=== PATIENT | female | born 1960 | race Caucasian/White ===

== ENCOUNTER → 2023-09-24 | Outpatient (CLI) | payer OTHER, SELFPAY ==
--- NOTE | 2023-09-24 15:16 | CT_ITS ---
INDICATION: ANISOCORIA EXAMINATION: CT CHEST WITH CONTRAST - CT Chest W/ Contrast Injection TECHNIQUE: Helically acquired images were obtained of the chest following IV contrast. A radiation dose optimization technique was used for this scan. IV Contrast dosage and agent: COMPARISON: None. FINDINGS: Exam is limited by improper positioning of patient''s arms resulting in significant streak artifact. LUNGS, PLEURA AND LARGE AIRWAYS: No masses, consolidation, or edema. No pleural effusion or thickening. No pneumothorax. THYROID: No thyroid lesions. HEART AND PERICARDIUM: Heart size is normal. No pericardial effusion. VESSELS: Thoracic aorta is not dilated. No aortic dissection. No obvious central pulmonary embolism although this study was not performed with the pulmonary embolism protocol. MEDIASTINUM AND BRODERICK: No mediastinal or hilar adenopathy. Esophagus is unremarkable. No hiatal hernia. UPPER ABDOMEN: No acute pathology. BONES: Degenerative changes. No suspicious lytic or blastic abnormality. CT/Chest WITH Contrast IMPRESSION: Negative contrast enhanced CT of the chest. Electronically Signed: Socrates Joya MD at 16:37 EST ,
--- NOTE | 2023-09-24 15:16 | CT_ITS ---
STUDY: CTA HEAD AND NECK WITH CONTRAST REASON FOR EXAM: Female, 63 years old. ANISOCORIA RADIATION DOSAGE (If Supplied By Facility): CTDIvol = ( 25.22 ) mGy, DLP = ( 2481.93 ) mGycm TECHNIQUE: CT angiography was performed with a multi-detector CT scanner. Data acquisition was obtained from the skull base through the vertex following intravenous administration of IV 100mL [id number]. MIP images were reconstructed from the axial data set. Post-processing of the angiographic images was performed, with multiplanar reformation and 3D reconstruction. Individualized dose optimization techniques were used for this CT. COMPARISON: No relevant priors. FINDINGS: Normal bilateral petrous carotid arteries. Normal right cavernous carotid artery with a normal supraclinoid bifurcation. Normal left cavernous carotid artery with a normal supraclinoid bifurcation. Normal right A1 segments of the anterior cerebral artery. Normal left A1 segments of the anterior cerebral artery. Normal intact anterior communicating artery (ACOM). Normal bilateral A2 segments of the anterior cerebral arteries. Normal right M1 and M2 segments of the middle cerebral arteries, with a normal M1 bifurcation. Normal left M1 and M2 segments of the middle cerebral arteries, with a normal M1 bifurcation. Normal right posterior communicating artery (PCOM). Normal left posterior communicating artery (PCOM). Normal bilateral vertebral arteries. Normal basilar artery with a normal basilar bifurcation. The visualized bilateral superior cerebellar (SCA) arteries are normal. Normal bilateral P1, P2 and visualized P3 segments of the posterior cerebral arteries. There is no demonstrated aneurysm of the [place] of [place]. There is no demonstrated abnormality of the visualized brain. AORTIC ARCH: Normal visualized aortic arch. Normal origins of the brachiocephalic, left common carotid, and left subclavian arteries. RIGHT CAROTID ARTERIES: Normal right common carotid artery (CCA). There is mild atherosclerotic plaque formation with minimal narrowing of the right carotid bulb. There is mild atherosclerotic plaque formation of the origin of the right internal carotid artery with less than 50% cross sectional diameter stenosis. Normal visualized cervical portion of the right internal carotid artery. Normal origin of the right external carotid artery (ECA). LEFT CAROTID ARTERIES: Normal left common carotid artery (CCA). There is mild atherosclerotic plaque formation with minimal narrowing of the left carotid bulb. There is mild atherosclerotic plaque formation of the origin of the left internal carotid artery with less than 50% cross sectional diameter stenosis. Normal visualized cervical portion of the left internal carotid artery. Normal origin of the left external carotid artery (ECA). VERTEBRAL ARTERIES: Normal bilateral vertebral arteries. CT/CTA Head AND Neck W/ Contrast IMPRESSION: Normal CTA Head and neck with contrast for age. Electronically Signed: Socrates Joya MD at 16:50 EST ,
[2023-09-24 15:59] LABS: CREATININE FINGERSTICK < 1.0 mg/dL (0.55-1.02)
[2023-09-24 16:41] LABS: Absolute Lymphocyte Count 2.15 X10^3/uL (0.83-4.51); Basophil# 0.07 X10^3/uL; Eosinophil# 0.24 X10^3/uL; Eosinophils% 3.4 % (0-5); Hematocrit 42.3 % (37-47); Hemoglobin 13.1 g/dL (12.0-15.0); Lymphocyte # 2.15 X10^3/ul (0.83-4.51); Lymphocyte % 30.9 % (19-41); Mean Corpuscular Volume 93.6 fL (81-99); Mean Platelet Vol. 9.7 fl (6.2-12.0); Monocyte# 0.46 X10^3/uL; Monocyte% 6.6 % (0-10); NRBC Flagged by Analyzer 0 % (0-5); Neutrophil # 4.02 X10^3/uL (2.7-7.7); Neutrophil % 57.8 % (47-70); Platelet Count 285 K/mm3 (150-450); RBC Distribution Width CV 13.2 % (11.6-14.6); RBC Distribution Width SD 45.2 fl (35.1-43.9); Red Blood Count 4.52 M/mm3 (4.2-5.4)
[2023-09-24 16:57] LABS: Erythrocyte Sedimentation Rate 6 mm/hr (0-30)
[2023-09-24 17:17] LABS: CRP < 2.90 mg/L (0.0-3.0)
--- OUTSIDE RECORDS SUMMARY | 2023-09-24 17:55 | XMS RPT_ITS | CCD ---
Author Name Unknown Address [address] [facility] [address] [place] [address] Organization [facility] Care Team Providers Care Workers Compensation Claims Supervisor Name Role Phone HENRI PRICE Primary Care Physician ( [phone] Rachel Hsu PT Unavailable Unavailable JEWELL ROSALES DO Primary Care Physician JEWELL ROSALES DO Attending Unavailable JEWELL ROSALES DO Primary Care Unavailable REBECCA CARDENAS Attending Unavailab le JEWELL ROSALES DO Primary Care Unavailable JEWELL ROSALES DO Primary Care Unavailable JEWELL ROSALES DO Attending Unavailable JEWELL ROSALES DO Primary Care Unavailable JEWELL ROSALES DO Attending Unavailable JEWELL ROSALES DO Attending Unavailable JEWELL ROSALES DO Primary Care Unavailable KINDRA HAHN MD Attending Unavail able JEWELL ROSALES DO Primary Care Unavailable JEWELL ROSALES DO Attending Unavailable JEWELL ROSALES DO E Primary Care Unavailable JEWELL ROSALES DO Attending Unavailable JEWELL ROSALES DO E Primary Care Unavailable Allergies Allergy Classification Reported Allergen(s) Allergy Type Date of Onset Reaction(s) Facility (3 sources) seasonal enviromental Allergy to substance tinitis, dizziness, drainage [facility] Work Phone: Medications Current Medications Medication Drug Class(es) Dates Sig (Normalized) Sig (Original) amLODIPine 10 mg oral tablet (8 sources) Dihydropyridine Calcium Channel Abhi Start: 08-01-2021 End: 01-28-2022 amLODIPine 10 mg oral tablet Dose : 10 mg = 1 tab(s), Oral, qDay, # 90 tab(s), 1 Refill(s), Pharmacy: [facility]/pharmacy #[id number], 171.5, cm, 08/01/21 8:06:00 EST, Height, kg, 08/01/21 8:13:00 EST, Dosing Weight Start Date: 08/01/21 Stop Date: 01/28/22 Status: Ordered Completed/Discontinued Medications Medication Drug Class(es) Dates Sig (Normalized) Sig (Original) acetaminophen 325 mg / HYDROcodone bitartrate 5 mg oral tablet (4 sources) Opioid Agonist Start: 09-08-2021 acetaminophen-hydr ocodone 325 mg-5 mg oral tablet Dose = 1 tab(s), Oral, q6h, PRN for pain, 0 Refill(s), 104.5 Start Date: 09/08/21 Status: Ordered Problems Problem Classification Problem Date Documented Da te Episodic/Chronic Abdominal pain (1 source) Epigastric pain; Translations: [Epigastric pain] Episodic Anxiety disorders (8 sources) Anxiety 12-29-2020 Chronic Cardiac dysrhythmias (5 sources) Multiple premature ventricular complexes 06-24-2023 Chronic Cardiac dysrhythmias (1 source) Palpitations 08-26-2023 Episodic Chronic kidney disease (1 source) Chronic kidney disease stage 3A 08-26-2023 Chronic Conditions associated with dizziness or vertigo (15 sources) Dizziness; Translations: [Lightheadedness] 11-30-2022 Episodic Conduction disorders (3 sources) Prolonged QT interval 11-23-2022 Chronic Disorders of lipid metabolism (20 sources) Hyperlipidemia; Translations: [Mixed hyperlipidemia] 12-29-2020 Chronic Essential hypertension (16 sources) Hypertensive disorder; Translations: [Essential hypertension] 12-29-2020 Chronic Headache; including migraine (7 sources) Frequent headache 10-30-2022 Episodic Other circulatory disease (8 sources) Elevated blood pressure 12-08-2020 Episodic Other connective tissue disease (1 source) Cramp in lower limb 08-26-2023 Episodic Other connective tissue disease (1 source) Swelling of lower limb 08-26-2023 Episodic Other diseases of kidney and ureters (1 source) Disorder of kidney and/or ureter; Translations: [Disorder of kidney and ureter, unspecified] Episodic Other diseases of kidney and ureters (2 sources) Disorder of kidney and ureter, unspecified; Translations: [Disorder of kidney and ureter, unspecified] Onset: 07-23-2023 Episodic Other ear and sense organ disorders (8 sources) Tinnitus 12-29-2020 Episodic Other ear and sense organ disorders (7 sources) Tinnitus of vascular origin 10-30-2022 Episodic Other eye disorders (1 source) Abnormal pupillary function; Translations: [Mydriasis] Onset: 09-04-2023 Chronic Other non-traumatic joint disorders (8 sources) Multiple joint pain 03-14-2020 Episodic Other non-traumatic joint disorders (1 source) Ankle joint pain; Translations: [Pain in left ankle and joints of left foot] Episodic Other nutritional; endocrine; and metabolic disorders (5 sources) Body mass index 30+ - obesity 03-28-2023 Chronic Other nutritional; endocrine; and metabolic disorders (8 sources) Overweight 05-08-2021 Episodic Other screening for suspected conditions (not mental disorders or infectious disease) (5 sources) Abnormal renal function 06-24-2023 Episodic Residual codes; unclassified (7 sources) Obstructive sleep apnea syndrome 11-30-2022 Chronic Residual codes; unclassified (15 sources) Insomnia 04-28-2019 Episodic Residual codes; unclassified (7 sources) Dependent edema 03-06-2022 Episodic Thyroid disorders (8 sources) Acquired hypothyroidism; Translations: [Hypothyroidism] 11-30-2022 Chronic Unclassified (7 sources) Grade A1 albuminuria 11-30-2022 Unclassified (5 sources) Patient encounter status 03-28-2023 Results Test Name Value Interpretation Reference Range Facil ity Vital Signs Date Time Vital Sign Value Performing Clinician Elgini marianne 09-04-2023 11:05-0500 Body height 170.2 cm KINDRA HAHN MD [facility] 09-04-2023 11:05-0500 Body temperature 97.88 [degF] KINDRA HAHN MD [facility] 09-04-2023 11:05-0500 Body weight 107 kg KINDRA HAHN MD [facility] 09-04-2023 11:05-0500 Diastolic Blood Pressure Non-Invasive 84 mm[Hg] KINDRA HAHN MD [facility] 09-04-2023 11:05-0500 Heart rate 65 /min KINDRA HAHN MD [facility] 09-04-2023 11:05-0500 Respiratory rate 18 /min KINDRA HAHN MD [facility] 09-04-2023 11:05-0500 Systolic Blood Pressure Non-Invasive 148 mm[Hg] KINDRA HAHN MD [facility] 09-08-2021 11:42-0500 Diastolic Blood Pressure NBP 76 1 BIANCA SUPPAN DPM [facility] 09-08-2021 11:42-0500 Heart rate 72 /min BIANCA SUPPAN DPM [facility] 09-08-2021 11:42-0500 Systolic Blood Pressure NBP 132 1 BIANCA SUPPAN DPM [facility] 09-08-2021 11:35-0500 Diastolic Blood Pressure NBP 74 1 BIANCA SUPPAN DPM [facility] 09-08-2021 11:35-0500 Heart rate 70 /min BIANCA SUPPAN DPM [facility] 09-08-2021 11:35-0500 Systolic Blood Pressure NBP 134 1 BIANCA SUPPAN DPM [facility] 09-08-2021 11:24-0500 Diastolic Blood Pressure NBP 78 1 BIANCA SUPPAN DPM [facility] 09-08-2021 11:24-0500 Heart rate 82 /min BIANCA SUPPAN DPM [facility] 09-08-2021 11:24-0500 Systolic Blood Pressure NBP 137 1 BIANCA SUPPAN DPM [facility] 09-08-2021 11:07-0500 Respiratory rate 18 /min BIANCA SUPPAN DPM [facility] 09-08-2021 11:00-0500 Respiratory rate 17 /min BIANCA SUPPAN DPM [facility] 09-08-2021 10:45-0500 Respiratory rate 22 /min BIANCA SUPPAN DPM [facility] 09-08-2021 10:30-0500 Body temperature 96.98 [degF] BIANCA SUPPAN DPM [facility] 09-08-2021 08:35-0500 Body height 170.2 cm BIANCA SUPPAN DPM [facility] 09-08-2021 08:35-0500 Body temperature 99.14 [degF] BIANCA SUPPAN DPM [facility] 09-08-2021 08:35-0500 Body weight 104.5 kg BIANCA SUPPAN DPM [facility] 09-08-2021 08:35-0500 Heart rate 83 /min BIANCA SUPPAN DPM [facility] 08-31-2021 09:35-0500 Body height 170.2 cm BIANCA SUPPAN DPM [facility] 08-31-2021 09:35-0500 Body weight 104.5 kg BIANCA SUPPAN DPM [facility] 08-31-2021 09:35-0500 Body weight 36.07 kg/m2 BIANCA SUPPAN DPM [facility] 08-31-2021 09:35-0500 diastolic 84 mm[Hg] BIANCA SUPPAN DPM [facility] 08-31-2021 09:35-0500 Heart rate 94 /min BIANCA SUPPAN DPM [facility] 08-31-2021 09:35-0500 Respiratory rate 20 /min BIANCA SUPPAN DPM [facility] 08-31-2021 09:35-0500 systolic 140 mm[Hg] BIANCA SUPPAN DPM [facility] Encounters Encounter Date Encounter Type Care Provider Facility Start: 09-04-2023 End: 09-04-2023 Emergency department patient visit KINDRA E LYREN-SONDLES MD Facility:B Start: 09-04-2023 End: 09-04-2023 Emergency department patient visit KINDRA HAHN MD [facility] Start: 08-23-2023 End: 08-24-2023 ambulatory JEWELL ROSALES DO Facility:B Start: 08-23-2023 End: 08-23-2023 Patient encounter procedure JEWELL ROSALES DO [facility] Start: 07-23-2023 End: 07-28-2023 ambulatory JEWELL ROSALES DO Facility:B Start: 07-23-2023 End: 07-28-2023 Encounter for general adult medical examination without abnormal findings JEWELL ROSALES DO Facility:B Start: 07-23-2023 End: 07-27-2023 Outreach Lab JEWELL ROSALES DO [facility] Start: 07-16-2023 End: 07-17-2023 ambulatory REBECCA HALL SCALEMAKER-CHIEF CHEMIST Facility:B Start: 07-16-2023 End: 07-16-2023 Patient encounter procedure REBECCA HALL SCALEMAKER-CHIEF CHEMIST [facility] Start: 06-24-2023 End: 06-25-2023 ambulatory JEWELL ROSALES DO Facility:B Start: 06-24-2023 End: 06-24-2023 Patient encounter procedure JEWELL ROSALES DO [facility] Start: 06-24-2023 End: 06-24-2023 Well adult monitoring check done JEWELL ROSALES DO [facility] Start: 01-15-2023 End: 01-16-2023 ambulatory JEWELL ROSALES DO Facility:B Start: 01-15-2023 End: 01-15-2023 Patient encounter procedure JEWELL Kylie ROSALES DO [facility] Start: 01-02-2023 End: 01-03-2023 ambulatory JEWELL Kylie ROSALES DO Facility:B Start: 01-02-2023 End: 01-02-2023 Patient encounter procedure JEWELL Kylie ROSALES DO [facility] Start: 11-23-2022 End: 11-24-2022 ambulatory JEWELL Kylie ROSALES DO Facility:B Start: 01-12-2022 End: 01-12-2022 Patient encounter procedure HENRI VASQUEZ SCALEMAKER-CHIEF CHEMIST [facility] Start: 12-27-2021 End: 12-27-2021 Patient encounter procedure HENRI VASQUEZ SCALEMAKER-CHIEF CHEMIST [facility] Start: 12-05-2021 End: 12-05-2021 Patient encounter procedure HENRI VASQUEZ SCALEMAKER-CHIEF CHEMIST [facility] Start: 09-08-2021 End: 09-08-2021 SAME DAY STAY BIANCA MORRIS DPM [facility] Start: 08-31-2021 End: 08-31-2021 Admission to establishment BIANCA MORRIS DPM [facility] Start: 08-18-2021 End: 08-18-2021 Patient encounter procedure HENRI VASQUEZ SCALEMAKER-CHIEF CHEMIST [facility] Start: 07-18-2021 End: 07-18-2021 Patient encounter procedure BIANCA MORRIS DPM [facility] Start: 05-24-2021 End: 08-21-2021 Physical therapy management BIANCA MORRIS DPM [facility] Procedures Date Procedure Procedure Detail Performing Clinician Start: 01-31-2012 Cystoscopy BIANCA ASHRAF DPM Immunizations Immunization Date Immunization Notes Care Provider Fa cility 12-16-2020 COVID-19, mRNA, LNP- S, PF, 100 mcg/ 0.5 mL dose; Translations: [Moderna COVID-19 Vaccine] BIANCA MORRIS DPM [facility] 11-19-2020 COVID-19, mRNA, LNP- S, PF, 100 mcg/ 0.5 mL dose; Translations: [Moderna COVID-19 Vaccine] BIANCA MORRIS DPM [facility] Payers Date Payer Category Payer Private Health Insurance [id number] 1960 Unknown [id number] 2.16.8 [id number] 1960 Unknown [id number] 2.16.8 [id number] 1959 Unknown [id number] 2.16.8 [id number] 1959 Unknown [id number] 2.16.8 [id number] 1959 Unknown [id number] 2.16.8 [id number] 1959 Unknown [id number] 2.16.8 [id number] 1960 Unknown [id number] 2.16.8 [id number] 1960 Unknown [id number] 2.16.8 [id number] Social History Date Type Detail Facility Start: 04-28-2019 Never smoked t obacco (finding) [facility] Sex Assigned At Female [facility] Functional Status Date Assessment Result Facility 09-04-2023 Functional Status Standard Safet y ID band on, Call device within reach, Bed in low position, Wheels locked, Upper/Half-Length side-rails up, Bedside Cart Locked, Safety level maintained [facility] Mental Status Date Assessment Result Facility 09-04-2023 Mental Status Orientation Oriented x 4 [facility] Clinical Notes 09-08-2021 to 09-04-2023 Note Date & Type Note Facility 09-04-2023 Hospital Discharg e instructions Patient Education 09/04/2023 13:30:35 How the Eye Works How the Eye Works Sharp vision depends on many factors. The parts of the eye work together to refract, or bend, and focus light rays. For normal vision, light must focus onto the retina. Cornea Light enters the eye through this clear, dome-shaped tissue. The cornea also bends light rays to help focus them. Problems with the cornea's shape can affect vision. Pupil This circular window in the center of the iris opens and closes to let the right amount of light into the eye. Iris This is the colored part of the eye. It contains muscles that dilate or open, and constrict or close, the pupil. Lens This disk of clear tissue behind the pupil changes shape to help focus light. Retina This thin layer of light-sensitive tissue lines the inside of the eye. The retina sends signals to the optic nerve. Optic nerve This nerve carries signals from the retina to the brain. The brain then interprets these signals to make images. These images are what you see. [id number] [employer] [place] [address], [place] [address]. All rights reserved. This information is not intended as a substitute for professional medical care. Always follow your healthcare professional's instructions. Follow Up Care 09/04/2023 10:49:50 With:JEWELL ROSALES DO Address: [address] [place] [phone] When:2-4 days [facility] 09-04-2023 Emergency department Discharge summary Discharge Instructions Thank you for allowing [facility] to assist you with your healthcare needs. The following is important discharge information regarding your hospital visit. Diagnosis from Today's Visit Headache Pupil dilated What to Do Next Instructions from Your Care Team No qualifying data available. Post Acute Orders No qualifying data available. You Need to Schedule the Following Appointments Follow Up with JEWELL ROSALES DO When Within 2-4 days Where: [address] [place] [phone] Allergies NKA Medications Please ask your primary doctor or pharmacist before taking any other medication not listed, including over the counter drugs, herbal medications, vitamins and or supplements as they may interact with your home medications. What How Much When Why Instructions Last Dose Unchanged aspirin 81 by mouth Every day Unchanged atorvastatin (Lipitor 10 mg oral tablet) 1 tab(s) by mouth Once a day Unchanged calcium-vitamin D (Citracal Calcium + D Slow Release 1200 oral tablet, extended release) 2 tab(s) by mouth Once a day (in the morning) Unchanged cetirizine (Zyrtec 10 mg oral tablet) 1 tab(s) by mouth Once a day as needed for as needed for allergy symptoms Unchanged cholecalciferol (Vitamin D3) 1,000 unit(s) by mouth Every day Unchanged cyclobenzaprine (cyclobenzaprine 5 mg oral tablet) 1 tab(s) by mouth Three (3) times a day as needed for Muscle spasm Unchanged fluticasone nasal (Flonase 50 mcg/ inh nasal spray) 2 spray(s) each nostril Once a day (in the morning) Unchanged furosemide (furosemide 20 mg oral tablet) 1 tab(s) by mouth Once a day Unchanged levothyroxine (levothyroxine 100 mcg (0.1 mg) oral tablet) 1 tab(s) by mouth Once a day 90 EA, TAKE 1 TABLET BY MOUTH EVERY DAY Unchanged magnesium oxide (magnesium oxide 400 mg oral capsule) 1 cap by mouth Once a day Unchanged meclizine (meclizine 12.5 mg oral tablet) 1 tab(s) by mouth Three (3) times a day as needed for as needed for dizziness Vertigo Can take up to 25mg as needed Unchanged metoprolol (metoprolol succinate 25 mg oral TABLET extended release) 1 tab(s) by mouth Two (2) times a day Do not crush or chew (controlled release) Unchanged verapamil (verapamil 120 mg/ 12 hours oral tablet, extended release) 1.5 tab(s) by mouth Once a day Please take this list to your next doctor s visit. Bring all medications you take, including over the counter medications, herbals and other supplements with you to your doctor s visit. Patients and families are reminded to discard old lists and to update any records with all medication providers or retail pharmacies. Education Materials How the Eye Works Sharp vision depends on many factors. The parts of the eye work together to refract, or bend, and focus light rays. For normal vision, light must focus onto the retina. Cornea Light enters the eye through this clear, dome-shaped tissue. The cornea also bends light rays to help focus them. Problems with the cornea's shape can affect vision. Pupil This circular window in the center of the iris opens and closes to let the right amount of light into the eye. Iris This is the colored part of the eye. It contains muscles that dilate or open, and constrict or close, the pupil. Lens This disk of clear tissue behind the pupil changes shape to help focus light. Retina This thin layer of light-sensitive tissue lines the inside of the eye. The retina sends signals to the optic nerve. Optic nerve This nerve carries signals from the retina to the brain. The brain then interprets these signals to make images. These images are what you see. [id number] [employer]. [address] [place] [address]. All rights reserved. This information is not intended as a substitute for professional medical care. Always follow your healthcare professional's instructions. Additional Information VACCINATE! IT SAVES LIVES! Members of the community who have not yet received the COVID-19 vaccine and would like to receive it can visit one of [facility] vaccine clinics. There are many vaccine clinic locations within the [facility]. For locations and available times, please visit [email or web address] [email or web address] It is important to note that some COVID mobile vaccine clinics are held outdoors and may be canceled in rainy or stormy conditions. To learn more about pediatric vaccinations (ages 5-11), we invite you to visit the [facility] webpage. [email or web address] To learn more about the COVID-19 vaccine, we invite you to visit the CDC website for a list of frequently asked questions. https://www.cdc.gov/coronavirus/ 2019-ncov/vaccines/faq.html [facility] Patient Portal Access Instructions: Stay connected with your healthcare team and access your personal medical information anytime with the [facility] Patient Portal. If you would like a full copy of your medical records please contact the [facility] Medical Records Department Saturday through Saturday between 8a.m. and 4:30p.m. Please follow the directions below to access the portal: 1.Access the email account you provided upon registration to the hospital.2.Look for an invitation email from [facility].3.Open the email and access the invitation link: Accept Invitation to [facility].Fill in the required joshua to create your account. Sign into [email or web address] with your username and password that you created in the above steps to stay up to date. You can then view a summary of results, a summary of your visits, and the ability to download your summaries to your computer or send the information securely to a physician. Remember that your healthcare information is confidential, so carefully consider who you will allow to register on the [facility] Patient Portal for access to your information. You can also access the [facility] Patient Portal on the [employer]. Simply click on Health Records under Health Data and then click on the [facility] logo. HOW TO SAFELY DISPOSE OF PRESCRIPTION MEDICATIONS Please use one of the following methods to safely dispose of your unused medications. 1.Use a drug disposal kit: the drug disposal pouch allows you to safely discard your old and unused drugs. Ask your nurse to give you one when you are discharged.2.Visit a local take-back location: Many local pharmacies and police departments have programs that collect old and unwanted prescription drugs. Call your local pharmacy or go to http://[employer].Pheedo/9B8Rm4w to find one close to you.3.Make use of household items: Use cat litter or old coffee grounds to dispose medications if other options are not available. Mix your drugs with these household products, seal them in an airtight container and throw it into the garbage. Call [facility]: [phone] to be sure your drugs can be disposed of in this way. Some medicines may require a different approach.4.Never flush your medications down the toilet. IF YOU HAVE BEEN PRESCRIBED AN OPIOIDS FOR PAIN If you have been prescribed an opioid (such as hydrocodone, oxycodone or morphine), it is critical to understand the possible side effects and risks of opioid pain medications. Even when taken as directed, opioids can have several side effects including: Tolerance, meaning you might need to take more of a medication for the same pain relief. Nausea, vomiting and/or constipation. Sleepiness, dizziness, dry mouth, confusion, depression or itching. Physical dependence, meaning you have withdrawal symptoms when a medication is stopped ? this can develop within a few days. KNOW YOUR RESPONSIBILITIES It is important to know exactly how much and how often to take the opioid pain medications you are prescribed. Never take opioids in higher amounts or more often than prescribed. Do not combine opioids with alcohol or other drugs that cause drowsiness, such as benzodiazepines, also known as benzos, including diazepam and alprazolam, muscle relaxants or sleep aids. Never sell or share prescription opioids. This is illegal. Store opioids in a secure place and out of reach of others (including children, family, friends and visitors). The last page(s) of this document has been signed and retained as a CHART COPY Signatures Patient Education Materials How the Eye Works Medication Leaflets My discharge plan and instructions have been reviewed and explained to me and IGERSON JUDY L understand my current condition and have read and understand these discharge instructions. I have received a written copy of the plan/instructions. If I have questions, I am aware that I should contact my doctor. Patient/Auto Body Straightener Signature: Date/Time: Relationship to Patient: Witness Name/Signature: Date/Time: [facility] 09-04-2023 Note ORIGINAL EXAMINATION: CT OF THE HEAD WITHOUT CONTRAST 09/04/2023 1:03 pm TECHNIQUE: CT of the head was performed without the administration of intravenous contrast. Automated exposure control, iterative reconstruction, and/or weight based adjustment of the mA/kV was utilized to reduce the radiation dose to as low as reasonably achievable. COMPARISON: 02/12/2022 HISTORY: ORDERING SYSTEM PROVIDED HISTORY: Reason for Exam: pain/headache FINDINGS: BRAIN/VENTRICLES: There is no acute intracranial hemorrhage, mass effect or midline shift. No abnormal extra-axial fluid collection. The wyatt-white differentiation is maintained without evidence of an acute infarct. There is no evidence of hydrocephalus. ORBITS: The visualized portion of the orbits demonstrate no acute abnormality. SINUSES: The visualized paranasal sinuses and mastoid air cells demonstrate no acute abnormality. SOFT TISSUES/SKULL: No acute abnormality of the visualized skull or soft tissues. IMPRESSION: No acute intracranial abnormality. Interpreted by: Arvin Donald MD Preliminary Report By: Arvin Donald MD Electronically signed By Arvin Donald MD Dictated Date: 09/04/2023 1:06:12 PM Prelim Date: 09/04/2023 1:06:54 PM Sign Date: 09/04/2023 1:06:54 PM Ordering Provider: KINDRA HAHN [facility] ADMISSION HISTORY A ND PHYSICIAL CHIEF COMPLAINT: HISTORY OF PRESENT ILLNESS: REVIEW OF SYSTEMS: ACTIVE PROBLEMS: (15) Acquired hypothyroidism (548205564) Anxiety (56226581) Arthritis (3537053) Back pain (898067396) Elevated blood pressure reading (892559340) HLD (hyperlipidemia) (43817403) HTN (hypertension) (3429844431) Insomnia (414104632) Mixed hyperlipidemia (813829577) Multiple joint pain (693611352) Neck pain (674915638) Obstructive sleep apnea (3037724895) Over weight (001313135) Tinnitus (480461894) Vertigo (5906408637) MEDICATIONS: Active Inpt Meds: cefOXitin Start: 09/08/21 8:07:00 EST, Dose = 1 gram(s), IV Piggyback, PREOP pharm, Rate: 200 mL/hr, Infuse over: 30 minute(s), 0 Active PRN Meds: None One Time Meds: None Active IV Meds: Lactated Ringers Infusion 1,000 mL (LR 1,000 mL) Start: 09/08/21 8:07:00 EST, Rate: 125 mL/hr ALLERGIES: (1) NKA FAMILY HISTORY: SOCIAL HISTORY: PHYSICAL EXAM: VITALS: [id number](kg) 09/08 08:[id number] 24 Hr Tmax: 37.3 at 09/08 08:35 36 Hr Tmax: 37.3 at 09/08 08:35 Vital Signs are the last 5 in the past 48 hours. Weights display the last 5 within 7 days. Initial Wt: 09/08 104.5 kg 230 lb Current Wt: 09/08 104.5 kg 230 lb GENERAL: HEENT: CARDIOVASCULAR: RESPIRATORY: ABDOMEN: EXREMETIES: NEUROLOGICAL: PSYCHIATRIC: LABS: No 36hr Lab Data DIAGNOSTICS: IMPRESSION: PLAN: History and Physical Update I have examined the patient; reviewed the H&P and there are no changes to the H&P unless noted below. Future Appointments Appointment Date:11/08/2021 08:30:00 AM Scheduled Provider:HENRI VASQUEZ Location:[facility] Appointment Type:PC OV Future Scheduled Tests Laboratory* Lipid Profile 05/09/21 * Complete Metabolic Panel 05/09/21 [facility] 12-17-2021 Hospital Discharge instructions Patient Education 09/08/2021 10:55:35 How to Use Cold Therapy, Cqxw-ra-Vpwm How to Use Cold Therapy Cold therapy, or cryotherapy, is a treatment that uses cold temperatures to treat an injury or medical condition. It includes using cold packs or ice packs to reduce pain and swelling. Only use cold therapy if your doctor says it is okay. What are the risks? Generally, cold therapy is a safe treatment. However, it is not safe for: People who are not able to say they are in pain. These include small children and people who have memory problems. People who have certain conditions, such as: ?A problem in the vessels that slows blood flow to the fingers and toes (Raynaud's syndrome). ?Feeling very cold easily (cold hypersensitivity). ?Lack of feeling in the area being iced. Cold therapy may not be safe for people who have other conditions. Do not use it without talking toyour doctor if you have: A heart condition. High blood pressure. Open or healing wounds. An infection. Pain and swelling in your joints (rheumatoid arthritis). Poor blood flow in the body. Diabetes. Certain skin conditions. How can I make a cold pack? When using a cold pack at home to reduce pain and swelling, you can use: A silica gel cold pack that has been left in the freezer. You can buy this online or in stores. A sealable plastic bag that has been filled with crushed ice. A washcloth or paper towels soaked in cold (or ice) water. A plastic bag of frozen vegetables. Throw them away when you are finished using them as a cold pack. Supplies needed: A cold pack. A towel. This can be dry or damp, based on what you like. How to use cold therapy 1.Have your cold pack ready. 2.Place a towel between the cold pack and your skin. You may also wrap the cold pack in a towel. 3.Put the cold pack on the affected area. Keep it on for no more than 20 minutes at a time. 4.Check your skin after 5 minutes to make sure that there is no damage to the area. Check for: White spots on your skin. Your skin may look blotchy or mottled. Skin that looks blue or pale. Skin that feels waxy or hard. 5.Repeat these steps as many times each day as told by your doctor. Always use a towel to avoid direct contact with your skin. Contact a doctor if: You start to have white spots on your skin. This may give your skin a blotchy or mottled look. Your skin turns blue or pale. Your skin becomes waxy or hard. Your swelling gets worse. Summary Cold therapy, or cryotherapy, is used to treat an injury or other conditions. It includes using cold packs or ice packs to reduce pain and swelling. Cold therapy is not safe for people who are not able to say they are in pain. When using cold packs or ice packs, always place a towel between the cold source and your skin. Check your skin after 5 minutes of icing it. This is to make sure that there is no skin damage. Contact your doctor if you notice changes in your skin or your swelling gets worse. This information is not intended to replace advice given to you by your health care provider. Make sure you discuss any questions you have with your health care provider. Document Released: 02/25/2009 Document Revised: 06/08/2019 Document Reviewed: 06/08/2019 [employer] Patient Education 2020 [employer]. 09/08/2021 10:55:15 Hand Washing, [id number]-[id number] Hand Washing Germs such as bacteria, viruses, and parasites are found everywhere. They can be in the air and water. They can also be on surfaces like food, door handles, and your skin. Every day, your hands touchgerms. Many of these germs can make you and your family sick. Washing your hands is one of the bestways to lower your risk of getting and sharing germs. When should I wash my hands? You should wash your hands whenever you think they are dirty. You should also wash your hands: Before: ?Visiting a baby or anyone with a weakened disease-fighting system (immunesystem). ?Putting in and taking out contact lenses. After: ?Using the bathroom or helping someone else use the bathroom. ?Working or playing outside. ?Touching or taking out the garbage. ?Touching anything dirty around your home. ?Sneezing, coughing, or blowing your nose. ?Using a phone, including your mobile phone. ?Touching an animal, animal food, animal poop, or its toys or leash. ?Touching money. ?Using household chemical waste management technician or poisonous chemicals. ?Handling dirty clothes, bedding, or rags. ?Using public transportation. ?Going shopping, especially if you use a shopping cart or basket. ?Shaking hands. ?Handling livestock, such as cows or sheep. Before and after: ?Preparing food. ?Eating. ?Visiting or taking care of someone who is sick. This includes touching used tissues, toys, and clothes. ?Changing a bandage (dressing). ?Taking care of an injury or wound. ?Giving or taking medicine. ?Preparing a bottle for a baby. ?Feeding a baby or young child. ?Changing a diaper. What is the right way to wash my hands? 1.Wet your hands with clean, running water. Turn off the water or move your hands out of the running water. 2.Apply liquid soap or bar soap to your hands. 3.Rub your hands together quickly to create lather. 4.Keep rubbing your hands together for at least 20 seconds. Thoroughly scrub all parts of your hands. This includes scrubbing under your fingernails and between your fingers. 5.Rinse your hands with clean, running water. Do this until all the soap is gone. 6.Dry your hands using an air dryer or a clean paper or cloth towel, or let your hands air-dry. Do not use your clothing or a dirty towel to dry your hands. If you are in a public restroom, use your towel: To turn off the water faucet. To open the bathroom door. How can I clean my hands if I do not have soap and water? If soap and clean water are not available, use a hand-washing wipe, spray, or gel (hand veneer gluer).Use one that contains at least 60% alcohol. If you are handling food, gels are not recommended as areplacement for hand washing with soap and water. To use these products, follow the directions on the product, and: Apply enough product to cover your hands. Make sure you wipe, rub, or spray the product so that it reaches every part of your hands and wrists. Include the backs of your hands, between your fingers, and under your fingernails. Rub the product onto your hands until it dries. Summary Every day, your hands touch germs. Many of these germs can make you and your family sick. Washing your hands is one of the best ways to lower your risk of getting and sharing germs. If soap and clean water are not available, use a hand-washing wipe, spray, or gel. This information is not intended to replace advice given to you by your health care provider. Make sure you discuss any questions you have with your health care provider. Document Released: 08/22/2009 Document Revised: 06/18/2018 Document Reviewed: 06/18/2018 [employer] Patient Education 2020 [employer]. 09/08/2021 10:55:08 Deep Vein Thrombosis Deep Vein Thrombosis Deep vein thrombosis (DVT) is a condition in which a blood clot forms in a deep vein, such as a lower leg, thigh, or arm vein. A clot is blood that has thickened into a gel or solid. This condition is dangerous. It can lead to serious and even life-threatening complications if the clot travels to the lungs and causes a blockage (pulmonary embolism). It can also damage veins in the leg. This can result in leg pain, swelling, discoloration, and sores (post-thrombotic syndrome). What are the causes? This condition may be caused by: A slowdown of blood flow. Damage to a vein. A condition that causes blood to clot more easily, such as an inherited clotting disorder. What increases the risk? The following factors may make you more likely to develop this condition: Being overweight. Being older, especially over age 60. Sitting or lying down for more than four hours. Being in the hospital. Lack of physical activity (sedentary lifestyle). , being in childbirth, or having recently given . Taking medicines that contain estrogen, such as medicines to prevent . Smoking. A history of any of the following: ?Blood clots or a blood clotting disease. ?Peripheral vascular disease. ?Inflammatory bowel disease. ?Cancer. ?Heart disease. ?Genetic conditions that affect how your blood clots, such as Factor V Leiden mutation. ?Neurological diseases that affect your legs (leg paresis). ?A recent injury, such as a car accident. ?Major or lengthy surgery. ?A central line placed inside a large vein. What are the signs or symptoms? Symptoms of this condition include: Swelling, pain, or tenderness in an arm or leg. Warmth, redness, or discoloration in an arm or leg. If the clot is in your leg, symptoms may be more noticeable or worse when you stand or walk. Some people may not develop any symptoms. How is this diagnosed? This condition is diagnosed with: A medical history and physical exam. Tests, such as: ?Blood tests. These are done to check how well your blood clots. ?Ultrasound. This is done to check for clots. ?Venogram. For this test, contrast dye is injected into a vein and X-rays are taken to check for any clots. How is this treated? Treatment for this condition depends on: The cause of your DVT. Your risk for bleeding or developing more clots. Any other medical conditions that you have. Treatment may include: Taking a blood thinner (anticoagulant). This type of medicine prevents clots from forming. It may be taken by mouth, injected under the skin, or injected through an IV (catheter). Injecting clot-dissolving medicines into the affected vein (catheter-directed thrombolysis). Having surgery. Surgery may be done to: ?Remove the clot. ?Place a filter in a large vein to catch blood clots before they reach the lungs. Some treatments may be continued for up to six months. Follow these instructions at home: If you are taking blood thinners: Take the medicine exactly as told by your health care provider. Some blood thinners need to be taken at the same time every day. Do not skip a dose. Talk with your health care provider before you take any medicines that contain aspirin or NSAIDs. These medicines increase your risk for dangerous bleeding. Ask your health care provider about foods and drugs that could change the way the medicine works (may interact). Avoid those things if your health care provider tells you to do so. Blood thinners can cause easy bruising and may make it difficult to stop bleeding. Because of this: ?Be very careful when using knives, scissors, or other sharp objects. ?Use an electric razor instead of a blade. ?Avoid activities that could cause injury or bruising, and follow instructions about how to preventfalls. Wear a medical alert bracelet or carry a card that lists what medicines you take. General instructions Take mbfl-bck-srttvmo and prescription medicines only as told by your health care provider. Return to your normal activities as told by your health care provider. Ask your health care provider what activities are safe for you. Wear compression stockings if recommended by your health care provider. Keep all follow-up visits as told by your health care provider. This is important. How is this prevented? To lower your risk of developing this condition again: For 30 or more minutes every day, do an activity that: ?Involves moving your arms and legs. ?Increases your heart rate. When traveling for longer than four hours: ?Exercise your arms and legs every hour. ?Drink plenty of water. ?Avoid drinking alcohol. Avoid sitting or lying for a long time without moving your legs. If you have surgery or you are hospitalized, ask about ways to prevent blood clots. These may include taking frequent walks or using anticoagulants. Stay at a healthy weight. If you are a woman who is older than age 35, avoid unnecessary use of medicines that contain estrogen, such as some control pills. Do not use any products that contain nicotine or tobacco, such as cigarettes and e-cigarettes. Thisis especially important if you take estrogen medicines. If you need help quitting, ask your health care provider. Contact a health care provider if: You miss a dose of your blood thinner. Your menstrual period is heavier than usual. You have unusual bruising. Get help right away if: You have: ?New or increased pain, swelling, or redness in an arm or leg. ?Numbness or tingling in an arm or leg. ?Shortness of breath. ?Chest pain. ?A rapid or irregular heartbeat. ?A severe headache or confusion. ?A cut that will not stop bleeding. There is blood in your vomit, stool, or urine. You have a serious fall or accident, or you hit your head. You feel light-headed or dizzy. You cough up blood. These symptoms may represent a serious problem that is an emergency. Do not wait to see if the symptoms will go away. Get medical help right away. Call your local emergency services (911 in the [place] Do not drive yourself to the hospital. Summary Deep vein thrombosis (DVT) is a condition in which a blood clot forms in a deep vein, such as a lower leg, thigh, or arm vein. Symptoms can include swelling, warmth, pain, and redness in your leg or arm. This condition may be treated with a blood thinner (anticoagulant medicine), medicine that is injected to dissolve blood clots,compression stockings, or surgery. If you are prescribed blood thinners, take them exactly as told. This information is not intended to replace advice given to you by your health care provider. Make sure you discuss any questions you have with your health care provider. Document Released: 09/09/2006 Document Revised: 08/22/2018 Document Reviewed: 02/07/2018 [employer] Patient Education 2020 [employer]. 09/08/2021 10:55:02 Ankle Arthroscopy, Care After Ankle Arthroscopy, Care After This sheet gives you information about how to care for yourself after your procedure. Your health care provider may also give you more specific instructions. If you have problems or questions, contact your health care provider. What can I expect after the procedure? After your procedure, it is common to have: Swelling, stiffness, and pain. Constipation from pain medicine. Follow these instructions at home: If you have a splint or boot: Wear the splint or boot as told by your health care provider. Remove it only as told by your healthcare provider. Loosen the splint or boot if your toes tingle, become numb, or turn cold and blue. Keep the splint or boot clean. If the splint or boot is not waterproof: ?Do not let it get wet. ?Cover it with a watertight covering when you take a shower. Bathing Do not take baths, swim, or use a hot tub until your health care provider approves. Ask your healthcare provider if you can take showers. If your cast or boot is not waterproof, cover it with a watertight covering when you take a shower. Keep the dressing dry until your health care provider says it can be removed. Incision care Follow instructions from your health care provider about how to take care of your incisions. Make sure you: ?Wash your hands with soap and water before you change your bandage (dressing). If soap and water are not available, use hand veneer gluer. ?Change your dressing as told by your health care provider. ?Leave stitches (sutures), skin glue, or adhesive strips in place. These skin closures may need to stay in place for 2 weeks or longer. If adhesive strip edges start to loosen and curl up, you may trim the loose edges. Do not remove adhesive strips completely unless your health care provider tells you to do that. Check your incision area every day for signs of infection. Check for: ?More redness, swelling, or pain. ?You have more fluid or blood. ?Warmth ?Pus or a bad smell. Keep the dressing dry until your health care provider says it can be removed. Managing pain, stiffness, and swelling Raise (elevate) the injured area above the level of your heart while you are sitting or lying down. If directed, put ice on the injured area: ?If you have a removable splint or boot, remove it as told by your health care provider ?Put ice in a plastic bag. ?Place a towel between your skin and the bag. ?Leave the ice on for 20 minutes, 2 3 times a day. Move your toes often to avoid stiffness and to lessen swelling. Driving Do not drive until you are able to put all of your weight onto your surgical leg. Ask your health care provider when it is safe to drive if you have a splint or boot. Do not drive or use heavy machinery while taking prescription pain medicine. General instructions Do any exercises or physical therapy as told by your health care provider. Follow your health care provider's instructions on using your injured limb to support your body weight. You may need to use crutches. To prevent or treat constipation while you are taking prescription pain medicine, your health care provider may recommend that you: ?Drink enough fluid to keep your urine clear or pale yellow. ?Take pbfu-pvu-iwjvnuh or prescription medicines. ?Eat foods that are high in fiber, such as fresh fruits and vegetables, whole grains, and beans. ?Limit foods that are high in fat and processed sugars, such as fried and sweet foods. Take qzfc-fsb-swvvork and prescription medicines only as told by your health care provider. Do not use any products that contain nicotine or tobacco. These can delay bone healing. This includes cigarettes and e-cigarettes. If you need help quitting, ask your health care provider. Keep all follow-up visits as told by your health care provider. This is important. Contact a health care provider if: You have a fever. You have more redness, swelling, or pain around your incision area. You have more fluid or blood coming from your incision area. Your incision feels warm to the touch. You have pus or a bad smell coming from your incision area. Your incision site breaks open after the closures are removed. Your pain does not get better when you take medicine. Get help right away if: You have chest pain or shortness of breath. You have numbness in your foot or toes, and it gets worse. Your foot turns cold and blue and does not get better when you loosen your splint or boot. Summary It is common to have ankle swelling, stiffness, or pain after the procedure. Putting ice and elevating your ankle will help manage the swelling and pain. Do not drive or use heavy machinery if you are taking prescription pain medicine. Ask your health care provider when it is safe to drive. Contact your health care provider if you notice any signs of infection. This information is not intended to replace advice given to you by your health care provider. Make sure you discuss any questions you have with your health care provider. Document Released: 06/30/2014 Document Revised: 08/22/2018 Document Reviewed: 09/06/2017 [employer] Patient Education 2020 [employer]. 09/08/2021 10:54:49 Peroneal Tendon Tear Peroneal Tendon Tear The peroneal tendons are strong bands of tissue that are on the outside of your ankle. They connecta bone in your foot to the muscles that let you turn your feet outward and stand on your toes. A peroneal tendon tear (rupture) can include a partial or complete tear of the tendon. This injury can interfere with your ability to straighten your foot or turn your foot to the outside. What are the causes? This condition may be caused by a long-term injury, or it may occur suddenly. This injury may be caused by: Doing repeated ankle movements. Placing sudden stress on the peroneal tendons, which stretches them farther or faster than they aremeant to stretch. Having certain medical problems. Taking certain medicines for a long time. What increases the risk? The following factors may make you more likely to develop this condition: Participating in activities that: ?Require sudden and quick tightening (contractions) of the muscles of the lower leg. These include jumping and quick starts. ?Involve kicking with the outer part of the foot, such as martial arts. Having a weakened tendon from: ?A misshapen groove in the bottom of the heel bone where the peroneal tendons sit. ?Poor foot strength and flexibility. ?A past ankle sprain. ?A past or untreated peroneal tendon injury. ?A medical problem that decreases blood supply to the peroneal tendons. Failing to warm up properly before activities. Having shots to treat swelling and inflammation (corticosteroid injections) in or near the peronealtendon. Using certain antibiotics. What are the signs or symptoms? Symptoms of this condition include: A snapping or popping sound behind the outer part of your ankle. You may also have a feeling that something is torn in your ankle. Pain when moving your foot up and down. A clicking feeling when moving your foot up and down. Inability to stand on the toes or the ball of your foot, or weakness when trying to stand on the toes or the ball of the foot. Pain, swelling, and bruising around the injured area. How is this diagnosed? This condition may be diagnosed based on: Your medical history. Your symptoms. A physical exam. Imaging studies. These may include X-rays, an MRI, or an ultrasound. How is this treated? This condition may be treated with: Applying ice, resting, and taking medicines. Wearing a splint or a brace to support your ankle and keep it still. Having surgery. This is done in severe cases. Doing physical therapy to increase your strength and flexibility. Follow these instructions at home: If you have a splint or brace: Wear it as told by your health care provider. Remove it only as told by your health care provider. Loosen it f your toes tingle, become numb, or turn cold and blue. Check the skin around it every day. Tell your health care provider about any concerns. Keep it clean and dry. If the splint or brace is not waterproof: ?Do not let it get wet. ?Cover it with a watertight covering when you take a bath or shower. Managing pain, stiffness, and swelling If directed, put ice on the injured area. ?If you have a removable splint or brace, remove it as told by your health care provider. ?Put ice in a plastic bag. ?Place a towel between your skin and the bag. ?Leave the ice on for 20 minutes, 2 3 times a day. Move your toes often to reduce stiffness and swelling. Raise (elevate) the injured area above the level of your heart while you are sitting or lying down. Activity Do not use the injured ankle to support your body weight until your health care provider says that you can. Use crutches as told by your health care provider. Return to your normal activities as told by your health care provider. Ask your health care provider what activities are safe for you. Ask your health care provider when it is safe to drive if you have a splint or brace on your ankle. General instructions Take hwfx-kbx-rteewhe and prescription medicines only as told by your health care provider. Do not use any products that contain nicotine or tobacco, such as cigarettes, e- cigarettes, and chewing tobacco. These can delay healing. If you need help quitting, ask your health care provider. Keep all follow-up visits as told by your health care provider. This is important. How is this prevented? Warm up and stretch before being active. Cool down and stretch after being active. Give your body time to rest between periods of activity. Maintain physical fitness, including strength and flexibility. Contact a health care provider if: Your pain gets worse even after treatment. Your foot or ankle feels numb or cold, or looks blue. Summary A peroneal tendon tear (rupture) can include a partial or complete tear to the tendons that are on the outside of your ankle. Symptoms include a sound like a snap or a pop behind the outer part of your ankle, or a feeling that something is torn in your ankle. You may also have pain, swelling, and bruising of your ankle. This condition is treated with rest, ice, medicines, and surgery. Contact a health care provider if your pain gets worse, or your ankle feels numb or cold, or looks blue. This information is not intended to replace advice given to you by your health care provider. Make sure you discuss any questions you have with your health care provider. Document Released: 09/09/2006 Document Revised: 11/12/2019 Document Reviewed: 11/12/2019 [employer] Patient Education 2020 [employer] 09/08/2021 10:54:01 General Anesthesia, Adult, Care After General Anesthesia, Adult, Care After This sheet gives you information about how to care for yourself after your procedure. Your health care provider may also give you more specific instructions. If you have problems or questions, contact your health care provider. What can I expect after the procedure? After the procedure, the following side effects are common: Pain or discomfort at the IV site. Nausea. Vomiting. Sore throat. Trouble concentrating. Feeling cold or chills. Weak or tired. Sleepiness and fatigue. Soreness and body aches. These side effects can affect parts of the body that were not involved in surgery. Follow these instructions at home: For at least 24 hours after the procedure: Have a responsible adult stay with you. It is important to have someone help care for you until youare awake and alert. Rest as needed. Do not: ?Participate in activities in which you could fall or become injured. ?Drive. ?Use heavy machinery. ?Drink alcohol. ?Take sleeping pills or medicines that cause drowsiness. ?Make important decisions or sign legal documents. ?Take care of children on your own. Eating and drinking Follow any instructions from your health care provider about eating or drinking restrictions. When you feel hungry, start by eating small amounts of foods that are soft and easy to digest (bland), such as toast. Gradually return to your regular diet. Drink enough fluid to keep your urine pale yellow. If you vomit, rehydrate by drinking water, juice, or clear broth. General instructions If you have sleep apnea, surgery and certain medicines can increase your risk for breathing problems. Follow instructions from your health care provider about wearing your sleep device: ?Anytime you are sleeping, including during daytime naps. ?While taking prescription pain medicines, sleeping medicines, or medicines that make you drowsy. Return to your normal activities as told by your health care provider. Ask your health care provider what activities are safe for you. Take vzcr-[id number]-[id number] and prescription medicines only as told by your health care provider. If you smoke, do not smoke without supervision. Keep all follow-up visits as told by your health care provider. This is important. Contact a health care provider if: You have nausea or vomiting that does not get better with medicine. You cannot eat or drink without vomiting. You have pain that does not get better with medicine. You are unable to pass urine. You develop a skin rash. You have a fever. You have redness around your IV site that gets worse. Get help right away if: You have difficulty breathing. You have chest pain. You have blood in your urine or stool, or you vomit blood. Summary After the procedure, it is common to have a sore throat or nausea. It is also common to feel tired. Have a responsible adult stay with you for the first 24 hours after general anesthesia. It is important to have someone help care for you until you are awake and alert. When you feel hungry, start by eating small amounts of foods that are soft and easy to digest (bland), such as toast. Gradually return to your regular diet. Drink enough fluid to keep your urine pale yellow. Return to your normal activities as told by your health care provider. Ask your health care provider what activities are safe for you. This information is not intended to replace advice given to you by your health care provider. Make sure you discuss any questions you have with your health care provider. Document Released: 12/16/2001 Document Revised: 09/12/2018 Document Reviewed: 04/25/2018 [employer] Patient Education 2020 [employer]. Follow Up Care 08/24/2021 13:11:38 With:BIANCA MORRIS [facility], Surgery Address: When: Unknown Comments:CALL DR MORRIS WITH ANY QUESTIONS OR CONCERNS. GO TO THE EMERGENCY ROOM WITH ANY URGENT MATTERS. SEE DR WALKER HOME INSTRUCTION SHEET FOR FURTHER DETAILS. [facility] Evaluation + Plan note Future Appointments Appointment Date:11/08/2021 08:30:00 AM Scheduled Provider:HENRI VASQUEZ Location:[facility] Appointment Type:PC OV Future Scheduled Tests Laboratory* Lipid Profile 05/09/21 * Complete Metabolic Panel 05/09/21 [facility] Evaluation + Plan note Future Appointments Appointment Date:12/06/2021 08:10:00 AM Scheduled Provider:HENRI VASQUEZ Location:[facility] Appointment Type:PC OV Future Scheduled Tests Laboratory* Lipid Profile 05/09/21 * Complete Metabolic Panel 05/09/21 [facility] Evaluation + Plan note Future Appointments Appointment Date:03/07/2022 08:10:00 AM Scheduled Provider:HENRI VASQUEZ Location:[facility] Appointment Type:PC OV Follow Up Future Scheduled Tests Laboratory* Hepatic Function Panel 03/08/22 * Lipid Profile 03/08/22 * Lipid Profile 05/09/21 * Complete Metabolic Panel 05/09/21 [facility] Evaluation + Plan note Future Appointments Appointment Date:02/15/2023 10:30:00 AM Scheduled Provider:JEWELL ROSALES DO Location:[facility] Appointment Type:PC OV [facility] Evaluation + Plan note Future Appointments Appointment Date:06/27/2023 11:15:00 AM Scheduled Provider:REBECCA HALL Location:[facility] Appointment Type:[facility] Appointment Date:08/26/2023 09:30:00 AM Scheduled Provider:JEWELL ROSALES DO Location:[facility] Appointment Type:PC OV [facility] Evaluation + Plan note Future Appointments Appointment Date:07/23/2023 09:30:00 AM Scheduled Provider:JEWELL ROSALES DO Location:[facility] Appointment Type:PC OV Appointment Date:07/25/2023 11:30:00 AM Scheduled Provider:REBECCA HALL Location:[facility] Appointment Type:CV OV Appointment Date:08/26/2023 09:30:00 AM Scheduled Provider:JEWELL ROSALES DO Location:[facility] Appointment Type:PC OV [facility] Evaluation + Plan note Future Appointments Appointment Date:08/12/2023 10:00:00 AM Scheduled Provider:REBECCA HALL Location:[facility] Appointment Type:CV OV Appointment Date:08/26/2023 09:30:00 AM Scheduled Provider:JEWELL ROSALES DO Location:[facility] Appointment Type:PC OV Future Scheduled Tests Laboratory* Basic Metabolic Panel 07/25/23 [facility] evaluation + Plan note Future Appointments Appointment Date:08/26/2023 09:30:00 AM Scheduled Provider:JEWELL ROSALES DO Location:[facility] Appointment Type:PC OV Appointment Date:08/29/2023 09:30:00 AM Scheduled Provider:REBECCA HALL Location:[facility] Appointment Type:CV OV Future Scheduled Tests Radiology* CT Head or Brain w/o Contrast 08/12/23 [facility] Evaluation + Plan note Future Appointments Appointment Date:10/09/2023 08:30:00 AM Scheduled Provider:JEWELL ROSALES DO Location:[facility] Appointment Type:PC OV Appointment Date:11/25/2023 09:30:00 AM Scheduled Provider:JEWELL ROSALES DO Location:[facility] Appointment Type:PC OV Appointment Date:01/02/2024 09:30:00 AM Scheduled Provider:REBECCA HALL Location:[facility] Appointment Type:CV OV Future Scheduled Tests Laboratory* Ferritin 08/26/23 * Folate Level 08/26/23 * Magnesium Level 08/26/23 * Thyroid Stimulating Hormone 08/26/23 * Free T4 08/26/23 * Vitamin B12 Level 08/26/23 * Lipid Profile 08/26/23 * Iron Studies 08/26/23 * Albumin/Creatinine Ratio, Random Urine 08/26/23 * Complete Metabolic Panel 08/26/23 Radiology* CT Head or Brain w/o Contrast 08/12/23 [facility] Hospital course Narrative No data available for this section [facility] Hospital Discharge instructions No data available for this section [facility] Progress note No data available for this section [facility] Summary Purpose Family History No Family History Records Found Advance Directives No Advanced Directives Records Found Additional Source Comments Care Team (unrecognized sect ion and content) [facility]: [facility] Address: [address] [place] [id number]- [place] Name: Barb Hsu PT Personnel Name: HENRI VASQUEZ APRN-[facility] Address: [address] [place] [address] Name: Shadi, Fish Cake Maker Rachel PT Care Team Personnel Name: Shadi Fish Cake Maker Rachel PT Position: P3 Scheduling - Medical Intern Advanced Member Role: Other Name: JEWELL ROSALES DO Position: P4 Physician - Primary Care Member Role: Primary Care Physician Address: Address: [address] [place] [address]- Care Team Related Persons Name: VERO NIETO Address: Home [address] [place], [place] [id number] [place] Care Team Personnel Name: Shadi Fish Cake Maker Rachel PT Position: P3 Scheduling - Medical Intern Advanced Member Role: Other Name: JEWELL ROSALES DO Position: P4 Physician - Primary Care Member Role: Primary Care Physician Address: Address: [address] [place] [id number]- Care Team Related Persons Name: GERSON VERO Address: Home [address] [place], [place] [id number] [place] Care Team Personnel Name: Shadi Fish Cake Maker Rachel PT Position: P3 Scheduling - Medical Intern Advanced Member Role: Other Name: JEWELL ROSALES DO Position: P4 Physician - Primary Care Member Role: Primary Care Physician Address: Address: [address] [place] [address]- Care Team Related Persons Name: GERSON VERO Address: Home [address] [place], [place] [id number] [place] Care Team Personnel Name: Shadi Fish Cake Maker Rachel PT Position: P3 Scheduling - Medical Intern Advanced Member Role: Other Name: JEWELL ROSALES DO Position: P4 Physician - Primary Care Member Role: Primary Care Physician Address: Address: [address] [place] [address]- Care Team Related Persons Name: VERO NIETO Address: Home [address] [place], [place] [phone] [place] Care Team Personnel Name: Shadi Fish Cake Maker Rachel PT Position: P3 Scheduling - Medical Intern Advanced Member Role: Other Name: JEWELL ROSALES DO Position: P4 Physician - Primary Care Member Role: Primary Care Physician Address: Address: [address] [place] [address] [place] [address]- Care Team Related Persons Name: VERO NIETO Address: Home [address] [place], [place] [phone] [place] Care Team Personnel Name: Barb Hsu PT Position: P3 Scheduling - Medical Intern Advanced Member Role: Other Name: JEWELL ROSALES DO Position: P4 Physician - Primary Care Member Role: Primary Care Physician Address: Address: [address] [place] [address]- Care Team Related Persons Name: VERO NIETO Address: Home [address] [place], [place] [id number] [place] Care Team Personnel Name: Barb Hsu Clervicki Ramos PT Position: P3 Scheduling - Medical Intern Advanced Member Role: Other Name: JEWELL ROSALES DO Position: P4 Physician - Primary Care Member Role: Primary Care Physician Address: Address: [address] [place] [id number]- [place] Name: Mariah Gastelum RN Position: AO RN Member Role: ED RN Name: KINDRA HAHN MD Position: ED Physician Member Role: Attending Physician Address: Address: [facility] [address] [place] [address]- Care Team Related Persons Name: VERO NIETO Address: [address] [phone] INFORMATION SOURCE (unrecogn ized section and content) FOR RECORDS PERTAINING TO PATIENTS WHO ARE OR HAVE BEEN ENROLLED IN A CHEMICAL DEPENDENCY/SUBSTANCEABUSE PROGRAM, SOME INFORMATION MAY BE OMITTED. This clinical summary was aggregated from multiple sources. Caution should be exercised in using it in the provision of clinical care. This summary normalizes information from multiple sources, and as a consequence, information in this document may materially change the coding, format and clinical context of patient data. In addition, data may be omitted in some cases. CLINICAL DECISIONS SHOULD BE BASED ON THE PRIMARY CLINICAL RECORDS. [employer] provides no warranty or guarantee of the accuracy or completeness of information in this document.
== END | disposition home or self-care (01) ==
PROVIDERS: Referring Provider Ophthalmology; Visit Provider Ophthalmology
DX: H57.02 Anisocoria (principal)
CPT/HCPCS: 36415; 70496; 70498; 71260; 85025; 85652; 86140; Q9967